=== PATIENT | male | born 2000 | race Caucasian/White ===

== ENCOUNTER 2021-09-13 10:23 | Outpatient (REF) | payer BC, SELFPAY ==
[2021-09-13 10:33] LABS: MANUAL DIFF FLAG NO
[2021-09-13 13:13] LABS: Basophils Absolute Auto 0.1 X10*3/uL (0.0-0.2); Basophils Percent Auto 0.8 % (0-2); Eosinophils Absolute Auto 0.3 X10*3/uL (0.0-0.4); Eosinophils Percent Auto 3.5 % (0-4); Hematocrit 46.8 % (42.0-52.0); Hemoglobin 14.9 g/dl (14.0-18.0); Imm Gran Abs Auto 0.02 X10*3/uL (0.00-0.03); Imm Gran Pct Auto 0.3 % (0.0-0.4); Lymphocytes Absolute Auto 2.6 X10*3/uL (1.2-4.9); Lymphocytes Percent Auto 36.5 % (20-40); Mean Corpuscular HGB Conc 31.8 g/dl (31.0-36.0); Mean Corpuscular Hemoglobin 25.9 pg (27.0-33.0); Mean Corpuscular Volume 81.4 fL (80.0-98.0); Mean Platelet Volume 13.5 fL (9.4-12.4); Monocytes Absolute Auto 0.5 X10*3/uL (0.1-1.2); Monocytes Percent Auto 7.3 % (2-11); Neutrophils Absolute Auto 3.7 x10*3/uL (2.0-8.3); Neutrophils Percent Auto 51.6 % (45-73); Platelet Count 149 X10*3/uL (160-400); Red Blood Count 5.75 X10*6/uL (4.60-5.80); Red Cell Distribution Width 14.4 % (11.0-16.0); White Blood Count 7.1 X10*3/uL (4.8-10.8)
[2021-09-13 13:14] LABS: Alanine Aminotransferase 67 U/L (0-40); Albumin Level 4.6 g/dL (3.5-5.0); Alkaline Phosphatase 76 U/L (39-117); Anion Gap 14 (12-20); Aspartate Amino Transferase 30 U/L (5-37); Bilirubin Total 0.9 mg/dL (0.0-1.0); Blood Urea Nitrogen 10 mg/dL (9-16); Calcium 9.9 mg/dL (8.4-10.2); Carbon Dioxide 24 mmol/L (22-29); Chloride 105 mmol/L (96-108); Cholesterol 156 mg/dL; Estimated Glomerular Filt Rate > 60; Glucose Fasting 94 mg/dL (60-99); HDL Cholesterol 26 mg/dL; LDL Cholesterol Calculated 108 mg/dl; Potassium 4.4 mmol/L (3.3-5.1); Sodium 139 mmol/L (135-145); Total Protein 7.9 g/dL (6.5-8.0); Triglycerides 111 mg/dL
[2021-09-14 14:42] LABS: Vitamin B12 736 pg/mL (200-900)
[2021-09-19 13:16] LABS: Vitamin D 25-OH, D2 <4 ng/mL; Vitamin D 25-OH, D3 10 ng/mL; Vitamin D 25-OH, Total 10 ng/mL (30-100)
== END 2021-09-13 10:24 | disposition home or self-care (01) ==
LOC: HO.LAB 10:23
PROVIDERS: PCP Nurse Practitioner Acute Care; Visit Provider Nurse Practitioner Acute Care
DX: F39 Unspecified mood [affective] disorder (principal); F84.5 Asperger's syndrome; F90.9 Attention-deficit hyperactivity disorder, unspecified type; F41.9 Anxiety disorder, unspecified
CPT/HCPCS: 36415; 80053; 80061; 82306; 82607; 82746; 84443; 85025

== ENCOUNTER 2021-10-06 10:29 | Outpatient (REF) | payer BC, SELFPAY ==
[2021-10-06 10:39] LABS: MANUAL DIFF FLAG NO
[2021-10-06 10:54] LABS: Basophils Percent Auto 0.3 % (0-2); Eosinophils Absolute Auto 0.3 X10*3/uL (0.0-0.4); Eosinophils Percent Auto 3.3 % (0-4); Hematocrit 44.7 % (42.0-52.0); Hemoglobin 14.1 g/dl (14.0-18.0); Imm Gran Abs Auto 0.08 X10*3/uL (0.00-0.03); Imm Gran Pct Auto 0.8 % (0.0-0.4); Lymphocytes Percent Auto 20.3 % (20-40); Mean Corpuscular HGB Conc 31.5 g/dl (31.0-36.0); Mean Corpuscular Hemoglobin 25.8 pg (27.0-33.0); Mean Corpuscular Volume 81.7 fL (80.0-98.0); Mean Platelet Volume 12.4 fL (9.4-12.4); Monocytes Absolute Auto 0.8 X10*3/uL (0.1-1.2); Monocytes Percent Auto 8.2 % (2-11); Neutrophils Absolute Auto 6.6 x10*3/uL (2.0-8.3); Neutrophils Percent Auto 67.1 % (45-73); Platelet Count 163 X10*3/uL (160-400); Red Blood Count 5.47 X10*6/uL (4.60-5.80); Red Cell Distribution Width 14.3 % (11.0-16.0); White Blood Count 9.8 X10*3/uL (4.8-10.8)
[2021-10-06 11:16] LABS: Alanine Aminotransferase 41 U/L (0-40); Albumin Level 4.6 g/dL (3.5-5.0); Alkaline Phosphatase 74 U/L (39-117); Anion Gap 13 (12-20); Aspartate Amino Transferase 21 U/L (5-37); Bilirubin Total 0.7 mg/dL (0.0-1.0); Blood Urea Nitrogen 12 mg/dL (9-16); Carbon Dioxide 27 mmol/L (22-29); Chloride 103 mmol/L (96-108); Estimated Glomerular Filt Rate > 60; Glucose Random 111 mg/dL (60-115); Iron 25 mcg/dL (45-160); Percent Iron Saturation 6 % (15-50); Potassium 4.6 mmol/L (3.3-5.1); Sodium 138 mmol/L (135-145); Total Iron Binding Capacity 422 mcg/dL (228-428); Total Protein 8.1 g/dL (6.5-8.0); Unsaturated Iron Binding 397 ug/dL
[2021-10-06 11:36] LABS: Ferritin 114 ng/mL (20-250)
[2021-10-06 11:38] LABS: HBS Num1 6.51 mIU/mL (0-7.99); HBc Num1 0.14 S/CO (0.00-0.79); HBsAGNum1 0.18 S/CO (0.00-0.99); HIV AB/AG Nonreactive (Nonreactive); HIV Num 1 0.06 S/CO (0.00-0.99); Hepatitis B Core Antibody Nonreactive (Nonreactive); Hepatitis B Surface Antigen Negative (Negative); ~HepC Num1 0.15 S/CO (0.00-0.79); ~Hepatitis B Surface Antibody NONREACTIVE (Nonreactive); ~Hepatitis C Antibody Nonreactive (Nonreactive)
[2021-10-06 12:32] LABS: Folate 10.2 ng/mL (> or = 4.0); Vitamin B12 744 pg/mL (200-900)
[2021-10-08 07:45] LABS: Hepatitis A Antibody IgM 0.11 Index (0-0.79); ~Hepatitis A Antibody IgM Nonreactive (Nonreactive)
== END 2021-10-06 10:30 | disposition home or self-care (01) ==
LOC: HO.LAB 10:29
PROVIDERS: Visit Provider Nurse Practitioner Acute Care
DX: Z11.4 Encounter for screening for human immunodeficiency virus [HIV] (principal); D69.6 Thrombocytopenia, unspecified
CPT/HCPCS: 36415; 80053; 82607; 82728; 82746; 83540; 85025; 86704; 86706; 86709; 86803; 87340; 87389

== ENCOUNTER 2023-08-05 08:34 | Outpatient (REF) | payer BC, SELFPAY ==
[2023-08-05 09:19] LABS: Hematocrit 45.3 % (42.0-52.0); Hemoglobin 14.9 g/dl (14.0-18.0); Mean Corpuscular HGB Conc 32.9 g/dl (31.0-36.0); Mean Corpuscular Hemoglobin 27.5 pg (27.0-33.0); Mean Corpuscular Volume 83.6 fL (80.0-98.0); Mean Platelet Volume 12.8 fL (9.4-12.4); Platelet Count 158 X10*3/uL (160-400); Red Blood Count 5.42 X10*6/uL (4.60-5.80); Red Cell Distribution Width 13.3 % (11.0-16.0); White Blood Count 6.6 X10*3/uL (4.8-10.8)
[2023-08-05 09:40] LABS: Alanine Aminotransferase 108 U/L (0-40); Albumin Level 4.7 g/dL (3.5-5.0); Alkaline Phosphatase 62 U/L (39-117); Anion Gap 16 (12-20); Aspartate Amino Transferase 49 U/L (5-37); Bilirubin Total 0.8 mg/dL (0.0-1.0); Blood Urea Nitrogen 11 mg/dL (9-16); Calcium 9.9 mg/dL (8.4-10.2); Carbon Dioxide 26 mmol/L (22-29); Chloride 105 mmol/L (96-108); Estimated Glomerular Filt Rate > 60; Glucose Fasting 106 mg/dL (60-99); Iron 116 mcg/dL (45-160); Percent Iron Saturation 32 % (15-50); Potassium 4.5 mmol/L (3.3-5.1); Sodium 142 mmol/L (135-145); Total Iron Binding Capacity 362 mcg/dL (228-428); Total Protein 8.2 g/dL (6.5-8.0); Unsaturated Iron Binding 246 ug/dL
== END 2023-08-05 08:35 | disposition home or self-care (01) ==
LOC: HO.LAB 08:34
PROVIDERS: PCP Physician Assistant; Visit Provider Physician Assistant
DX: Z13.1 Encounter for screening for diabetes mellitus (principal); D69.6 Thrombocytopenia, unspecified; D50.9 Iron deficiency anemia, unspecified
CPT/HCPCS: 36415; 80053; 83540; 85027

== ENCOUNTER 2023-08-09 14:09 | Outpatient (AMB) | payer BC, SELFPAY ==
[2023-08-09 14:21] VITALS: BP 124/70; PULSE 80; O2SAT 98; BMI 33.5
--- NOTE | 2023-08-09 14:21 | A.OFFPC_ITS ---
Vital Signs 08/09/23 14:21 Height 6 ft Weight 247 lb BMI 33.5 BP 124/70 Blood Pressure Location Lt brachial Position Sitting Pulse 80 Pulse Source Pulse Oximeter Pulse Oximetry (%) 98 Oxygen Delivery Method Room Air Intake Visit Reasons: Follow up, Meds Open Soaper Tender Required: No Accompanied by: Self / Same As Patient Allergies Influenza Virus Vaccines Allergy (Severe, Verified 08/09/23 14:39) Vomiting, nausea, sweating, fever Medication List - Last Reconciled 08/09/23 by Cosmo Briggs PA-C azelastine 1 spray intranasal BID cholecalciferol (vitamin D3) 50 mcg PO DAILY 90 days haloperidol 1 tab in the AM; 2 tabs at night 30 days Tobacco use date assessed: 08/09/23 Dental Screening Dental Screen Date: 08/09/23 Did you have a dental visit in the last 12 months?: Yes Did you have a dental problem in the last 6 months where you did not have access to dental care?: No Was dental information given to patient?: Patient has dentist HPI Follow up, Meds HPI Details Patient is a 23-year-old male here today for a follow-up visit. Patient has a past medical history significant for as per Obesity, disorder, ADHD and anxiety. He Is still in need to see a phyciatrist. He previously seen by pediatrics psychiatrist whom was managing his Haldol medication though he is aged out now needs a new psychiatrist .. Allergic rhintis: REport having alot of sinusitis , he does use a nasal spray and daily Claritin that helps some. He would like to see an strainer mill operator for evaluation on allergy testing .. Reviewed left with patient and noted elevated liver enzymes. He does have upcoming ultrasound of liver Laboratory Tests 10/06/21 08/05/23 10:38 08:52 RBC 5.47 5.42 Hgb 14.1 Creatinine 1.04 Fasting Glucose 106 H AST 21 49 H ALT 41 H 108 H PFSH Medical History ADHD (attention deficit hyperactivity disorder) Allergic rhinitis Anxiety Asperger's disorder Mood disorder Seasonal allergies Surgical History No pertinent past surgical history Family History Mother No problems noted. Father No problems noted. Social History Housing: House Patient Tobacco Use Status: Never used Tobacco e-Cigarette/Vaping Use: Never Used Second Hand Smoke Exposure: No service: No Current occupational status: employed Current occupation: [employer] Cognitive needs: No Hearing needs: No Vision needs: Yes (glasses) Questionnaire PHQ-9 Over the last 2 weeks, how often have you been bothered by any of the following problems? 1. Little interest or pleasure in doing things: not at all 2. Feeling down, depressed, or hopeless: not at all 3. Trouble falling or staying asleep, or sleeping too much: not at all 4. Feeling tired or having little energy: not at all 5. Poor appetite or overeating: not at all 6. Feeling bad about yourself - or that you are a failure or have let yourself or your family down: not at all 7. Trouble concentrating on things, such as reading the newspaper or watching television: not at all 8. Moving or speaking so slowly that other people could have noticed. Or the opposite - being so fidgety or restless that you have been moving around a lot more than usual: not at all 9. Thoughts that you would be better off or of hurting yourself in some way : not at all Total score: 0 Depression Screening Interpretation: Negative Depression Screening Done: Yes 97980 - PHQ-9 Billing: Yes Source: Developed by Drs. Zack Combs, Shania Upton, Petey Galaviz and colleagues, with an educational bhumika from [employer]. Thrive Questionnaire Date Thrive assessed: 08/09/23 I am a: Patient What is your living situation today?: I have a steady place to live Within the past 12 months, did the food you bought not last and you didn't have the money to get more?: Never true Within the past 12 months, did you worry whether your food would run out before you got money to buy more?: Never true Do you have trouble paying for medicines?: No Do you have trouble getting transportation to medical appointments?: No Do you have trouble paying your heating and electricity bill?: No Do you have trouble taking care of your child, family member or friend?: No Do you have trouble with day-to-day activities such as bathing, preparing meals, shopping, managing finances, etc.?: No Are you currently unemployed and looking for a job?: No Are you interested in more education?: No Please select the resources that you would like help with: None Currently or been in a relationship where the following occur: no concerns reported THRIVE Score: 0 AUDIT C Alcohol Use Questionnaire (AUDIT-C) 1. How often do you have a drink containing alcohol?: Monthly or less 2. How many drinks containing alcohol do you have on a typical day when you are drinking?: 1 or 2 3. How often do you have six or more drinks on one occasion?: Never Total Score: 1 SLOANE-7 AMB Questionnaire SLOANE-7 Date SLOANE - 7 assessed: 08/09/23 Feeling nervous, anxious, or on edge: 0 = Not at all Not being able to stop or control worryin = Not at all Worrying too much about different things: 0 = Not at all Trouble relaxin = Not at all Being so restless that it is hard to sit still: 0 = Not at all Becoming easily annoyed or irritable: 0 = Not at all Feeling afraid as if something awful might happen: 0 = Not at all Total SLOANE-7 score (0-4 normal; 5-9 mild; 10-14 moderate; 15-21 severe): 0 Source: Developed by Drs. Zack Combs, Shania Upton, Petey Galaviz and colleagues, with an educational bhumika from [employer]. SLOANE-7 Assessment Billing SOLANE-7 Assessment Tool: SLOANE-7 Assessment 82192 Review of Systems Const Denies headache(s) Eyes Denies loss of vision ENT Denies vertigo, Denies dizziness, Denies headache(s) and Denies sore throat Card Denies chest pain, Denies leg edema and Denies lightheadedness Resp Denies cough, Denies hemoptysis and Denies wheezing GI Denies abdominal pain, Denies melena, Denies constipation, Denies diarrhea and Denies vomiting Denies dysuria, Denies urinary frequency and Denies urinary urgency Musc Denies arthralgias, Denies joint swelling, Denies numbness and Denies tingling Neuro Denies Abnormal speech present, Denies behavioral changes, Denies vertigo, Denies dizziness, Denies headache(s), Denies loss of vision, Denies memory loss, Denies numbness and Denies tingling Psych Denies anxiety, Denies behavioral changes, Denies depression, Denies memory loss and Denies panic attacks Elan/Lymph Denies easy bleeding and Denies easy bruising Aller/Immun Denies wheezing Physical exam (Primary Care) Vital Signs: Last Vital Signs Pulse 80 08/09/23 14:21 BP 124/70 08/09/23 14:21 Pulse Ox 98 08/09/23 14:21 Oxygen Delivery Method Room Air 08/09/23 14:21 BMI result Body Mass Index 33.5 BMI Assessment/Plan discussion: High Tobacco/Smoking Status: Tobacco use Status Tobacco use date assessed 08/09/23 08/09/23 14:35 Patient Tobacco Use Status Never used Tobacco 08/09/23 14:21 e-Cigarette/Vaping Use Never Used 08/09/23 14:21 PHQ-9: PHQ-9 Score PHQ-9: Total score 0 08/09/23 14:35 Depression Screening Interpretation: Negative Thrive Assessment: Date of Thrive Assessment Date Thrive assessed 08/09/23 08/09/23 14:35 Currently or been in a relationship where the following occur: no concerns reported Const Other: OBESE General: healthy appearing, no acute distress, alert and awake Nutritional Appearance: well nourished Orientation/consciousness: oriented to person, oriented to place and oriented to time HENMT Ears: TM's normal bilaterally General nose exam: Normal nasal mucous membranes and turbinates present Eyes Conjunctivae: conjunctivae normal Sclerae: sclerae normal Pupils: Equal, round and reactive pupils present Neck Neck: Yes no lymphadenopathy and Yes no JVD Thyroid: Thyroid normal Carotids: no bruits Resp Effort & Inspection: normal respiratory effort and not tachypneic Auscultation: no crackles, no rales, no rhonchi and no wheezes Cardio Rate: regular rate Rhythm: regular rhythm Heart sounds: no murmurs and normal S1 and S2 GI Palpation (GI): Soft to palpation, nontender, no hepatomegaly and no splenomegaly Auscultation: normal bowel sounds Skin General skin exam: no rashes or lesions noted and dry skin Neuro General: oriented to person, oriented to place and oriented to time Cranial nerves: Yes Equal, round and reactive pupils present Speech: No Abnormal speech present Gait exam (Neuro): Normal gait present Motor exam (neuro): no tremor noted Extrem Right upper extremity: full ROM Left upper extremity: full ROM Right lower extremity: full ROM; no edema Left lower extremity: full ROM; no edema Psych Mental Status: mental status grossly normal Speech and movement: Normal speech and movement present Affect: normal affect Attitude: cooperative Thought process: Normal thought process present Assessment and Plan Assessment & Plan (1) Asperger's disorder: Code(s): F84.5 - Asperger's syndrome Plan: Patient continues on 3 mg of Haldol a day which he has been stable on for quite some time . He would like to reestablish care with a adult psychiatrist He continues to work full-time in IT (2) Anxiety: Code(s): F41.9 - Anxiety disorder, unspecified Plan: Patient reports his anxiety has been elevated as of late though has been able to manage with Haldol and nonpharmacological techniques and does use recreational oral marijuana. (3) Obese: Code(s): E66.9 - Obesity, unspecified Qualifiers: Obesity type: due to excess calories Obesity classification: adult class 1 (BMI 30 - 34.9) Serious obesity comorbidity presence: without serious comorbidity Body mass index: BMI 32.0-32.9 Qualified Code(s): E66.09 - Other obesity due to excess calories; Z68.32 - Body mass index [BMI] 32.0-32.9, adult Plan: Has gained some weight since last office visit. He is recently been making better lifestyle and dietary changes. (4) Allergies: Code(s): T78.40XA - Allergy, unspecified, initial encounter Qualifiers: Encounter type: subsequent encounter Qualified Code(s): T78.40XD - Allergy, unspecified, subsequent encounter Plan: He is concerned about his allergies. He feels he has environmental allergies. He has been using [id number] allergy medication and nasal spray with some relief. He would like to see an compliance specialist to get allergy testing Orders: Referrals Allergy & Immunology Referral T78.40XA - Allergy, unspecified, initial encounter Medications: Refilled haloperidol 1 tab in the AM; 2 tabs at night 30 days 90 tabs 3RF F39 - Unspecified mood [affective] disorder, F84.5 - Asperger's syndrome Coding Level of Care Code Est Pt Level 4 (43496) Diagnoses Asperger's disorder F84.5 Anxiety F41.9 Class 1 obesity due to excess calories without serious comorbidity with body mass index (BMI) of 32.0 to 32.9 in adult E66.09; Z68.32 Obesity type: due to excess calories Obesity classification: adult class 1 (BMI 30 - 34.9) Serious obesity comorbidity presence: without serious comorbidity Body mass index: BMI 32.0-32.9 Allergy, subsequent encounter T78.40XD Encounter type: subsequent encounter Additional Codes SLOANE-7 Assessment Billing - SLOANE-7 Assessment Tool: SLOANE-7 Assessment 85602 ([id number])
== END 2023-08-09 14:50 | disposition home or self-care (01) ==
PROVIDERS: PCP Physician Assistant; Visit Provider Physician Assistant
DX: F84.5 Asperger's syndrome (principal); F41.9 Anxiety disorder, unspecified; E66.09 Other obesity due to excess calories; Z68.32 Body mass index [BMI] 32.0-32.9, adult; T78.40XD Allergy, unspecified, subsequent encounter
CPT/HCPCS: 99214

== ENCOUNTER 2023-08-26 07:43 | Outpatient (REF) | payer BC, SELFPAY ==
--- NOTE | ~2023-08-26 | US_ITS ---
EXAMINATION: US ABDOMEN LIMITED CLINICAL INFORMATION: Abnormal levels of other serum enzymes. COMPARISON: None available. TECHNIQUE: Real-time imaging of the right upper quadrant abdominal viscera. Technically limited study secondary to body habitus. FINDINGS: Limited examination secondary to patient body habitus. PANCREAS: Visualized portions of the proximal pancreas are within normal limits, the distal pancreas is not well. LIVER: Increased liver parenchymal echogenicity. Otherwise, liver is normal in size with smooth borders and no discrete mass. No intrahepatic biliary ductal dilatation. GALLBLADDER: The gallbladder is physiologically distended without evidence of stones, sludge, polyps, wall thickening or pericholecystic fluid. COMMON BILE DUCT: Not visualized. RIGHT KIDNEY: No hydronephrosis. No renal calculi or focal parenchymal lesions. The kidney measures 10.8 cm in maximum dimension. FREE FLUID: None. US/US abdomen limited IMPRESSION: 1. Limited examination secondary to patient body habitus. 2. Increased liver parenchymal echogenicity is nonspecific and could be seen in the setting of hepatic steatosis or hepatocellular disease. 3. The common bile duct was not visualized.
== END 2023-08-26 07:44 | disposition home or self-care (01) ==
LOC: HO.US 07:43
PROVIDERS: PCP Physician Assistant; Visit Provider Physician Assistant
DX: R74.8 Abnormal levels of other serum enzymes (principal)
CPT/HCPCS: 76705

== ENCOUNTER 2024-12-07 14:13 | Outpatient (AMB) | payer BC, SELFPAY ==
--- NOTE | 2024-12-07 14:16 | A.OFFPC_ITS ---
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 Patient has a past medical history significant for as per Obesity, disorder, ADHD and anxiety. .. Mood disorder/ Asperger's: Continues with the use of Haldol though which has significantly helped him with his mood and anxious symptoms. He reports he previously was seeing a psychiatrist when he was very young and found that how though was effective for his mood and anxiety.. .. Class 1 obesity: Has unfortunately gained weight since last office visit, he reports losing his job recently and has been low more inactive and experiencing dietary indiscretions. .. Elevated liver enzymes/ fatty liver: Most recent labs did show elevated liver enzymes in abdominal ultrasound consistent with fatty liver. He was told to work on low cholesterol diet and work on weight reduction. .. .. Vaccine: Up-to-date with COVID vaccine, Declines Vaccine. Needs Tdap [facility] Medical History Allergic rhinitis Anxiety ADHD (attention deficit hyperactivity disorder) Asperger's disorder Mood disorder Seasonal allergies Surgical History No pertinent past surgical history Family History Mother No problems noted. Father No problems noted. Social History (Updated 12/07/24 @ 14:42 by Cosmo Briggs PA-C) Housing: House Patient Tobacco Use Status: Never used Tobacco e-Cigarette/Vaping Use: Never Used Second Hand Smoke Exposure: No Substance Use Type: Marijuana service: No Current occupational status: unemployed Cognitive needs: No Hearing needs: No Vision needs: Yes (glasses) Questionnaire PHQ-9 Over the last 2 weeks, how often have you been bothered by any of the following problems? 1. Little interest or pleasure in doing things: not at all 2. Feeling down, depressed, or hopeless: not at all 3. Trouble falling or staying asleep, or sleeping too much: not at all 4. Feeling tired or having little energy: not at all 5. Poor appetite or overeating: not at all 6. Feeling bad about yourself - or that you are a failure or have let yourself or your family down: not at all 7. Trouble concentrating on things, such as reading the newspaper or watching television: not at all 8. Moving or speaking so slowly that other people could have noticed. Or the opposite - being so fidgety or restless that you have been moving around a lot more than usual: not at all 9. Thoughts that you would be better off or of hurting yourself in some way: not at all Total score: 0 Depression Screening Interpretation: Negative Depression Screening Done: Yes 07790 - PHQ-9 Billing: Yes Source: Developed by Drs. Zack Combs, Shania Upton, Petey Galaviz and colleagues, with an educational bhumika from [employer]. Thrive Questionnaire Date Thrive assessed: 12/07/24 I am a: Patient What is your living situation today?: I choose not to answer this question Within the past 12 months, did the food you bought not last and you didn't have the money to get more?: I choose not to answer this question Within the past 12 months, did you worry whether your food would run out before you got money to buy more?: I choose not to answer this question Do you have trouble paying for medicines?: I choose not to answer this question Do you have trouble getting transportation to medical appointments?: I choose not to answer this question Do you have trouble paying your heating and electricity bill?: I choose not to answer this question Do you have trouble taking care of your child, family member or friend?: I choose not to answer this question Do you have trouble with day-to-day activities such as bathing, preparing meals, shopping, managing finances, etc.?: I choose not to answer this question Are you currently unemployed and looking for a job?: I choose not to answer this question Are you interested in more education?: I choose not to answer this question Please select the resources that you would like help with: None Currently or been in a relationship where the following occur: I choose not to answer THRIVE Score: 0 AUDIT C Alcohol Use Questionnaire (AUDIT-C) 1. How often do you have a drink containing alcohol?: Never Total Score: 0 SLOANE-7 AMB Questionnaire SLOANE-7 Date SLOANE - 7 assessed: 12/07/24 Feeling nervous, anxious, or on edge: 1 = Several days Not being able to stop or control worryin = Several days Worrying too much about different things: 1 = Several days Trouble relaxin = Not at all Being so restless that it is hard to sit still: 0 = Not at all Becoming easily annoyed or irritable: 1 = Several days Feeling afraid as if something awful might happen: 2 = More than half the days Total SLOANE-7 score (0-4 normal; 5-9 mild; 10-14 moderate; 15-21 severe): 6 Source: Developed by Drs. Zack Combs, Shania Upton, Petey Galaviz and colleagues, with an educational bhumika from [employer]. SLOANE-7 Assessment Billing SLOANE-7 Assessment Tool: SLOANE-7 Assessment 09571 Review of Systems Const Denies body aches, Denies chills, Denies excessive sweating, Denies fatigue, Denies fever(s) and Denies headache(s) Eyes Denies blurry vision ENT Denies dysphagia, Denies vertigo, Denies dizziness, Denies headache(s), Denies hearing loss and Denies tinnitus Card Denies chest pain, Denies chest pain with activity, Denies syncope, Denies irregular heart rhythm and Denies dyspnea Resp Denies chest congestion, Denies cough, Denies hemoptysis, Denies dyspnea and Denies wheezing GI Denies abdominal pain, Denies melena, Denies hematochezia, Denies coffee ground emesis, Denies dysphagia, Denies diarrhea, Denies nausea and Denies vomiting Denies difficulty urinating, Denies dysuria, Denies urinary frequency, Denies urinary hesitancy and Denies urinary urgency Musc Denies arthralgias, Denies limited range of motion, Denies muscle cramps and Denies muscle weakness Skin/Breast Denies rash and Denies skin ulcer Neuro Denies Abnormal speech present, Denies confusion, Denies vertigo, Denies dizziness, Denies syncope, Denies headache(s), Denies memory loss and Denies seizure-like activity Psych Denies anxiety, Denies confusion, Denies depression, Denies memory loss, Denies panic attacks and Denies paranoia Endo Denies excessive sweating, Denies fatigue, Denies flushing, Denies polydipsia and Denies polyuria Aller/Immun Denies wheezing Physical exam (Primary Care) Vital Signs: Last Vital Signs Pulse 84 12/07/24 14:17 BP 126/76 12/07/24 14:17 Pulse Ox 98 12/07/24 14:17 Oxygen Delivery Method Room Air 12/07/24 14:17 BMI result Body Mass Index 34.4 BMI Assessment/Plan discussion: High BMI High, discussed plan: lifestyle, weight reduction, dietary and physical activity Tobacco/Smoking Status: Tobacco use Status Tobacco use date assessed 12/07/24 12/07/24 14:22 Patient Tobacco Use Status Never used Tobacco 12/07/24 14:42 e-Cigarette/Vaping Use Never Used 12/07/24 14:42 PHQ-9: PHQ-9 Score PHQ-9: Total score 0 12/07/24 14:43 Depression Screening Interpretation: Negative Thrive Assessment: Date of Thrive Assessment Date Thrive assessed 12/07/24 12/07/24 14:22 Currently or been in a relationship where the following occur: I choose not to answer Const General: cooperative, comfortable, no acute distress, alert and awake; No con fusion Orientation/consciousness: oriented to person, oriented to place, patient oriented x3 and No confusion HENMT Head: Yes normocephalic Ears: external ears normal and TM's normal bilaterally Face and sinus: No sinus tenderness Mouth: Normal oral and palatal mucosa present and tongue normal Teeth and gingiva: dentition normal and gingiva normal Throat: Yes posterior oropharynx normal, Yes tonsils normal and Yes uvula midline Eyes Conjunctivae: conjunctivae normal Sclerae: sclerae normal Pupils: Equal, round and reactive pupils present EOM: EOMs intact bilaterally Direct Ophthalmoscopy: No no photophobia Neck Neck: Yes no lymphadenopathy, No tender and Yes no JVD Thyroid: Thyroid normal Carotids: no bruits Chest Chest palpation & inspection: no tenderness Resp Effort & Inspection: normal respiratory effort, no audible wheezes, not labored and no stridor Auscultation: no crackles, no rales, no rhonchi and no wheezes Cardio Jugular venous distension: no JVD Rate: regular rate, not bradycardic and not tachycardic Rhythm: regular rhythm Bruits: no carotid bruits Peripheral pulses: Peripheral pulses 2+ throughout GI Inspection: Yes normal to inspection, No abdominal wall ecchymosis and No visible herniation Palpation (GI): Soft to palpation, nontender, no guarding, not rigid and No hepatosplenomegaly present Auscultation: normoactive bowel sounds General: Yes no CVA tenderness Back/Spine/Pelvis Back: no CVA tenderness and No back tenderness Cervical Spine: cervical ROM normal Thoracic/Lumbar Spine: thoracic and lumbar spine normal to inspection, straight leg raise negative bilaterally, No thoraco-lumbar ROM limited and No lumbar spinal tenderness Skin Lesions: no lesions Rashes: no rashes Wounds: no wounds Neuro General: oriented to person, oriented to place, patient oriented x3, CN's II-XI intact bilaterally and No confusion Cranial nerves: Yes Equal, round and reactive pupils present and Yes Normal accommodation reflex present Cognition (Neuro): normal cognition Speech: No Abnormal speech present Gait exam (Neuro): Normal gait present Motor exam (neuro): 5/5 motor strength present throughout Extrem Right upper extremity: full ROM; no cyanosis Left upper extremity: full ROM; no cyanosis Right lower extremity: no edema Left lower extremity: no edema Psych Appearance: grossly normal Mental Status: mental status grossly normal Affect: normal affect Attitude: cooperative Thought process: Normal thought process present Coding Level of Care Code Est Pt Prev Care 18-39y(49316) Diagnoses Physical exam Z00.00 Screening for diabetes mellitus (DM) Z13.1 Mood disorder F39 Asperger's disorder F84.5 Fatty liver disease, nonalcoholic K76.0 Additional Codes SLOANE-7 Assessment Billing - SLOANE-7 Assessment Tool: SLOANE-7 Assessment 86794 ([id number]) PHQ-9 - 83910 - PHQ-9 Billing: Yes ([id number]) Assessment & Plan Assessment & Plan (1) Physical exam: Code(s): Z00.00 - Encounter for general adult medical examination without abnormal findings Category: Medical Plan: As per HPI (2) Screening for diabetes mellitus (DM): Code(s): Z13.1 - Encounter for screening for diabetes mellitus Category: Medical Plan: As scheduled (3) Mood disorder: Code(s): F39 - Unspecified mood [affective] disorder Category: Medical Plan: Continues on Haldol which has been effective for his mood. (4) Asperger's disorder: Code(s): F84.5 - Asperger's syndrome Category: Medical Plan: Continues to live at home with his family, has part-time jobs here and there. 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 (5) Fatty liver disease, nonalcoholic: Code(s): K76.0 - Fatty (change of) liver, not elsewhere classified Category: Medical Plan: Patient does have a history of elevated liver enzymes and ultrasound did show evidence consistent with fatty liver. He will work on lifestyle and dietary modifications to reduce his weight. Orders: Orders [facility] [place]. Panel Fast 12/07/24 Z13.1 - Encounter for screening for diabetes mellitus Complete Blood Count no Diff 12/07/24 D69.6 - Thrombocytopenia, unspecified
--- OUTSIDE RECORDS SUMMARY | 2024-12-07 14:16 | XMS_ITS | Clinical Summary ---
Author Organization [facility] Address [address] [place] [phone] Phone Care Team Providers Care Pen Rider Name Role Phone Unavailable Primary Care Provider Unavailabl e Immunizations Immunization Administration Dates Next Due DTaP 08/05/2005, 2,01/19/2001, 001,2000 H1N1 05/24/2009 HPV Vaccine 9 Valent 03/10/2017 Hep B, ped/adol 04/13/2001,2000,2000 Hib (PRP-T) 01/03/2002, 1,2000, 001 IPV 08/05/2005, 1,2000, 001 Influenza, injectable, quadrivalent 04/17/2008 MMR 08/01/2004,08/02/2001 Meningococcal Conj (Menactra) MCV4P 03/10/2017,0 08/01/2012 Pneumococcal Conjugate 01/03/2002,2000,2000, 001 Tdap 08/01/2012 Varicella 10/03/2008,08/02/2001 Family History Relation Name Status Comments Father Alive Father's Brother one uncle w ith asthma Maternal Grandmother PR Mother Alive some anxiety/ a dopted, so no family hx available Other Siblings: albert booth, 03/13/2003 Social History Tobacco Use Types Packs/Day Years Used Date Smoking Tobacco: Never Assessed Sex and Gender Information Value Date Recorded Sex Assigned at Not on file Legal Sex Male 6:22 PM EDT Gender Identity Not on file Sexual Orientation Not on file Last Filed Vital Signs Vital Sign Reading Time Taken Comments Blood Pressure 142/84 03/10/2017 12:00 AM EDT Pulse - - Temperature 36.6 C (97.8 F) 12/30/2016 12:00 AM EDT Respiratory Rate - - Oxygen Saturation - - Inhaled Oxygen Concentration - - Weight 98.4 kg (217 lb) 03/10/2017 12:00 AM EDT Height 179.1 cm (5' 10.5 ) 03/10/2017 12:00 AM E DT Body Mass Index 30.7 03/10/2017 12:00 AM EDT Plan of Treatment Health Maintenance Due Date Last Done Comments HPV Vaccines (2 - Male 3-dose series) 04/07/2017 03/10/2017 DTaP,Tdap,and Td Vaccines (7 - Td or Tdap) 08/01/2022 08/01/2012, 08/05/2005, 01/03/2002, Additional history exists COVID-19 Vaccine ( season) 2024 Influenza Vaccines (#1) 2025 04/17/2008 Hepatitis B Vaccines Completed 04/13/2001, 2000, 2000 HIB Vaccines Completed 01/03/2002, 01/05, 2000, Additional history exists Pneumococcal Vaccine Completed 01/03/2002, 01/19/2001, 2000, Additional history exists MMR Vaccines Completed 08/01/2004, 08/02/2001 IPV Vaccines Completed 08/05/2005, 12/2000, 2000, Additional history exists Varicella Vaccines Completed 10/03/2008, 08/02/2001 Meningococcal Vaccine Completed 03/10/2017, 013 Hepatitis A Vaccines Aged Out No long er eligible based on patient's age to complete this topic Men B Vaccine Aged Out No longer elig ible based on patient's age to complete this topic Insurance BCBSMA
[2024-12-07 14:17] VITALS: BP 126/76; PULSE 84; O2SAT 98; BMI 34.4
== END 2024-12-07 14:49 | disposition home or self-care (01) ==
LOC: HO.HMCH 14:14
PROVIDERS: PCP Physician Assistant; Visit Provider Physician Assistant
DX: Z00.00 Encounter for general adult medical examination without abnormal findings (principal); Z13.1 Encounter for screening for diabetes mellitus; F39 Unspecified mood [affective] disorder; F84.5 Asperger's syndrome; K76.0 Fatty (change of) liver, not elsewhere classified

== ENCOUNTER → 2024-12-07 14:13 | Outpatient (BNVA) | payer BC, SELFPAY | PROVIDERS: PCP Physician Assistant; Visit Provider Physician Assistant | DX: Z00.00 Encounter for general adult medical examination without abnormal findings (principal); F90.9 Attention-deficit hyperactivity disorder, unspecified type; F41.9 Anxiety disorder, unspecified; F84.5 Asperger's syndrome; E66.811 Obesity, class 1; K76.0 Fatty (change of) liver, not elsewhere classified; D69.6 Thrombocytopenia, unspecified; Z68.34 Body mass index [BMI] 34.0-34.9, adult | CPT/HCPCS: 96127 ==

== ENCOUNTER 2025-02-12 11:00 | Outpatient (AMB) | payer BC, SELFPAY ==
--- OUTSIDE RECORDS SUMMARY | 2025-02-12 13:26 | XMS_ITS | Clinical Summary ---
Author Organization [facility] Address [address] [place] [address] Phone Care Team Providers Care Airplane Dispatcher Name Role Phone Unavailable Primary Care Provider [...] one uncle w ith asthma Maternal Grandmother [place] Mother Alive some anxiety/ a dopted, so [...] 08/01/2022 08/01/2012, 08/05/2005, 01/03/2002, Additional history exists Influenza Vaccines (#1) 2025 04/17/2008 COVID-19 Vaccine () 02/05/2025 Hepatitis B Vaccines Completed 04/13/2001, 2000, 2000 [...]
--- OUTSIDE RECORDS SUMMARY | 2025-02-12 13:26 | XMS_ITS | Encounter Summary ---
Author Organization [facility] Address [address] [place] [address] Phone Care Team Providers Care Retail Warehouse Supervisor Name Role Phone Stanley Vega MD Primary Care Provider [phone] Encounter Details Date Type Department Care Team (Late st Contact Info) Description 10/24/2017 [facility]version [facility]counter [facility] [address] [address] Social History Tobacco Use Types Packs/Day Years Used Date Smoking Tobacco: Never Assessed Sex and Gender Information Value Date Recorded Sex Assigned at Not on file Legal Sex Male 6:22 PM EDT Gender Identity Not on file Sexual Orientation Not on file documented as of this encounter Plan of Treatment Not on file documented as of this encounter Visit Diagnoses Not on filedocumented in this encounter Care Teams Retail Warehouse Supervisor Relationship Specialty Start Date End Date Stanley Vega MD [address] [place] [address] PCP - General Pediatrics 01/06/19 07/16/24 documented as of this encounter
== END 2025-02-12 11:09 | disposition home or self-care (01) ==
LOC: HO.HMGAL 11:00
PROVIDERS: PCP Physician Assistant; Visit Provider Registered Nurse Emergency
DX: J30.89 Other allergic rhinitis (principal)
CPT/HCPCS: 95117; 95165

== ENCOUNTER 2025-02-26 11:58 | Outpatient (AMB) | payer BC, SELFPAY ==
--- OUTSIDE RECORDS SUMMARY | 2025-02-26 14:41 | XMS_ITS | Encounter Summary ---
Author Organization [facility] Address [address] [place] [address] Phone Support Name Relationship Address Phone
== END 2025-02-26 11:59 | disposition home or self-care (01) ==
LOC: HO.HMGAL 11:58
PROVIDERS: PCP Physician Assistant; Visit Provider Registered Nurse Emergency
DX: J30.89 Other allergic rhinitis (principal)
CPT/HCPCS: 95117; 95165

== ENCOUNTER 2025-03-12 12:36 | Outpatient (AMB) | payer BC, SELFPAY ==
--- OUTSIDE RECORDS SUMMARY | 2025-03-12 15:02 | XMS_ITS | Encounter Summary ---
Author Organization [facility] Address [address] [place] [address] Phone Care Team Providers Care Talent Development Specialist Name Role Phone Stanley Vega MD Primary Care Provider [phone] Encounter Details Date Type Department Care Team (Late st Contact Info) Description 10/24/2017 Con[facility]counter [facility] [address] [address] Social History Tobacco Use Types Packs/Day Years [...] on filedocumented in this encounter Care Teams Talent Development Specialist Relationship Specialty Start Date End Date Stanley Vega MD [address] [place] [address] PCP - General Pediatrics 01/06/19 07/16/24 documented as of this encounter
--- OUTSIDE RECORDS SUMMARY | 2025-03-12 15:02 | XMS_ITS | Clinical Summary ---
Author Organization [facility] Address [address] [place] [address] Phone Care Team Providers Care Epic Beacon Specialists Name Role Phone Unavailable Primary Care Provider [...] one uncle w ith asthma Maternal Grandmother [place] Mother Alive some anxiety/ a dopted, so [...] Influenza Vaccines (#1) 2025 04/17/2008 COVID-19 Vaccine ( season) 2025 Hepatitis B Vaccines Completed 04/13/2001, 2000, 2000 [...]
== END 2025-03-12 12:37 | disposition home or self-care (01) ==
LOC: HO.HMGAL 12:36
PROVIDERS: PCP Physician Assistant; Visit Provider Registered Nurse Emergency
DX: J30.89 Other allergic rhinitis (principal)
CPT/HCPCS: 95117; 95165

== ENCOUNTER 2025-03-26 14:32 | Outpatient (AMB) | payer BC, SELFPAY ==
--- OUTSIDE RECORDS SUMMARY | 2025-03-26 18:19 | XMS_ITS | Encounter Summary ---
Author Organization [facility] Address [address] [place] [address] Phone Care Team Providers Care Automatic Casting Machine Operator Name Role Phone Stanley Vega MD Primary Care Provider [phone] Encounter Details Date Type Department Care Team (Late st Contact Info) Description 10/24/2017 Con[facility]counter [facility] [address] [address] Social History Tobacco Use Types Packs/Day Years [...] on filedocumented in this encounter Care Teams Automatic Casting Machine Operator Relationship Specialty Start Date End Date Stanley Vega MD [address] [place] [address] PCP - General Pediatrics 01/06/19 07/16/24 documented as of this encounter
--- OUTSIDE RECORDS SUMMARY | 2025-03-26 18:19 | XMS_ITS | Clinical Summary ---
Author Organization [facility] Address [address] [place] [address] Phone Care Team Providers Care Cotton Program Technician Name Role Phone Unavailable Primary Care Provider [...]
== END 2025-03-26 14:34 | disposition home or self-care (01) ==
LOC: HO.HMGAL 14:32
PROVIDERS: PCP Physician Assistant; Visit Provider Registered Nurse Emergency
DX: J30.89 Other allergic rhinitis (principal)
CPT/HCPCS: 95117; 95165

== ENCOUNTER 2025-04-02 13:57 | Outpatient (AMB) | payer BC, SELFPAY ==
--- OUTSIDE RECORDS SUMMARY | 2025-04-02 17:41 | XMS_ITS | Clinical Summary ---
Author Organization [facility] Address [address] [place] [address] Phone Care Team Providers Care Machinist Supervisor Name Role Phone Unavailable Primary Care Provider [...] one uncle w ith asthma Maternal Grandmother [place] Mother Alive some anxiety/ a dopted, so [...]
--- OUTSIDE RECORDS SUMMARY | 2025-04-02 17:41 | XMS_ITS | Encounter Summary ---
Author Organization [facility] Address [address] [place] [address] Phone Care Team Providers Care Supervisor Cutting And Sewing Room Name Role Phone Stanley Vega MD Primary Care Provider [phone] Encounter Details Date Type Department Care Team (Late st Contact Info) Description 10/24/2017 [facility]counter [facility] [address] [address] Social History Tobacco Use Types Packs/Day Years [...] on filedocumented in this encounter Care Teams Supervisor Cutting And Sewing Room Relationship Specialty Start Date End Date Stanley Vega MD [address] [place] [address] PCP - General Pediatrics 01/06/19 07/16/24 documented as of this encounter
== END 2025-04-02 13:57 | disposition home or self-care (01) ==
LOC: HO.HMGAL 13:57
PROVIDERS: PCP Physician Assistant; Visit Provider Registered Nurse Emergency
DX: J30.89 Other allergic rhinitis (principal)
CPT/HCPCS: 95117; 95165

== ENCOUNTER 2025-04-09 13:31 | Outpatient (AMB) | payer BC, SELFPAY | END 2025-04-09 13:32 | disposition home or self-care (01) | LOC: HO.HMGAL 13:31 | PROVIDERS: PCP Physician Assistant; Visit Provider Registered Nurse Emergency | DX: J30.89 Other allergic rhinitis (principal) | CPT/HCPCS: 95117; 95165 ==

== ENCOUNTER 2025-04-23 14:51 | Outpatient (AMB) | payer BC, SELFPAY ==
--- OUTSIDE RECORDS SUMMARY | 2025-04-24 05:11 | XMS_ITS | Encounter Summary ---
Author Organization [facility] Address [address] [place] [address] Phone Care Team Providers Care Pull Tab Dealer Name Role Phone Stanley Vega MD Primary Care Provider [phone] Encounter Details Date Type Department Care Team (Late st Contact Info) Description 10/24/2017 Conversion Encounter [facility] [address] [address] Social History Tobacco Use Types Packs/Day Years [...] on filedocumented in this encounter Care Teams Pull Tab Dealer Relationship Specialty Start Date End Date Stanley Vega MD [address] [place] [address] PCP - General Pediatrics 01/06/19 07/16/24 documented as of this encounter
--- OUTSIDE RECORDS SUMMARY | 2025-04-24 05:11 | XMS_ITS | Clinical Summary ---
Author Organization [facility] Address [address] [place] [address] Phone Care Team Providers Care Threading Machine Operator Name Role Phone Unavailable Primary Care Provider [...] one uncle w ith asthma Maternal Grandmother [place] Mother Alive some anxiety/ a dopted, so [...]
== END 2025-04-23 14:54 | disposition home or self-care (01) ==
LOC: HO.HMGAL 14:51
PROVIDERS: PCP Physician Assistant; Visit Provider Registered Nurse Emergency
DX: J30.89 Other allergic rhinitis (principal)
CPT/HCPCS: 95117; 95165

== ENCOUNTER 2025-04-30 14:21 | Outpatient (AMB) | payer BC, SELFPAY ==
--- OUTSIDE RECORDS SUMMARY | 2025-04-30 19:16 | XMS_ITS | Clinical Summary ---
Author Organization [facility] Address [address] [place] [address] Phone Care Team Providers Care Oxyhydrogen Welder Name Role Phone Unavailable Primary Care Provider [...] one uncle w ith asthma Maternal Grandmother [place] Mother Alive some anxiety/ a dopted, so [...]
--- OUTSIDE RECORDS SUMMARY | 2025-04-30 19:16 | XMS_ITS | Encounter Summary ---
Author Organization [facility] Address [address] [place] [address] Phone Care Team Providers Care Content Curator Name Role Phone Stanley Vega MD Primary Care Provider [phone] Encounter Details Date Type Department Care Team (Late st Contact Info) Description 10/24/2017 Conversion Encounter [facility] [address] [address] Social History Tobacco Use Types Packs/Day Years [...] on filedocumented in this encounter Care Teams Content Curator Relationship Specialty Start Date End Date Stanley Vega MD [address] [place] [address] PCP - General Pediatrics 01/06/19 07/16/24 documented as of this encounter
== END 2025-04-30 14:22 | disposition home or self-care (01) ==
LOC: HO.HMGAL 14:21
PROVIDERS: PCP Physician Assistant; Visit Provider Registered Nurse Emergency
DX: J30.89 Other allergic rhinitis (principal)
CPT/HCPCS: 95117; 95165

== ENCOUNTER 2025-05-07 13:30 | Outpatient (AMB) | payer BC, SELFPAY ==
--- OUTSIDE RECORDS SUMMARY | 2025-05-07 17:03 | XMS_ITS | Encounter Summary ---
Author Organization [facility] Address [address] [place] [address] Phone Care Team Providers Care Poolroom/Poolhall Manager Name Role Phone Stanley Vega MD Primary Care Provider [phone] Encounter Details Date Type Department Care Team (Late st Contact Info) Description 10/24/2017 Conversion Encounter [facility] [address] [address] Social History Tobacco Use Types Packs/Day Years [...] on filedocumented in this encounter Care Teams Poolroom/Poolhall Manager Relationship Specialty Start Date End Date Stanley Vega MD [address] [place] [address] PCP - General Pediatrics 01/06/19 07/16/24 documented as of this encounter
--- OUTSIDE RECORDS SUMMARY | 2025-05-07 17:03 | XMS_ITS | Clinical Summary ---
Author Organization [facility] Address [address] [place] [address] Phone Care Team Providers Care Lean Process Deployment Consultant Name Role Phone Unavailable Primary Care Provider [...]
== END 2025-05-07 13:36 | disposition home or self-care (01) ==
LOC: HO.HMGAL 13:30
PROVIDERS: PCP Physician Assistant; Visit Provider Registered Nurse Emergency
DX: J30.89 Other allergic rhinitis (principal)
CPT/HCPCS: 95117; 95165

== ENCOUNTER 2025-05-14 14:16 | Outpatient (AMB) | payer BC, SELFPAY | END 2025-05-14 14:18 | disposition home or self-care (01) | LOC: HO.HMGAL 14:16 | PROVIDERS: PCP Physician Assistant; Visit Provider Registered Nurse Emergency | DX: J30.89 Other allergic rhinitis (principal) | CPT/HCPCS: 95117; 95165 ==

== ENCOUNTER 2025-05-28 11:35 | Outpatient (AMB) | payer BC, SELFPAY ==
--- OUTSIDE RECORDS SUMMARY | 2025-05-28 14:48 | XMS_ITS | Encounter Summary ---
Author Organization [facility] Address [address] [place] [address] Phone Care Team Providers Care Convenience Recycle Center Tech Name Role Phone Stanley Vega MD Primary Care Provider [phone] Encounter Details Date Type Department Care Team (Late st Contact Info) Description 10/24/2017 Conversion Encounter [facility] [address] [address] Social History Tobacco Use Types Packs/Day Years [...] on filedocumented in this encounter Care Teams Convenience Recycle Center Tech Relationship Specialty Start Date End Date Stanley Vega MD [address] [place] [address] PCP - General Pediatrics 01/06/19 07/16/24 documented as of this encounter
--- OUTSIDE RECORDS SUMMARY | 2025-05-28 14:48 | XMS_ITS | Clinical Summary ---
Author Organization [facility] Address [address] [place] [address] Phone Care Team Providers Care Senior Marketing Analyst Name Role Phone Unavailable Primary Care Provider [...] one uncle w ith asthma Maternal Grandmother [place] Mother Alive some anxiety/ a dopted, so [...]
== END 2025-05-28 11:37 | disposition home or self-care (01) ==
LOC: HO.HMGAL 11:35
PROVIDERS: PCP Physician Assistant; Visit Provider Registered Nurse Emergency
DX: J30.89 Other allergic rhinitis (principal)
CPT/HCPCS: 95117; 95165